=== PATIENT | female | born 1960 | race Caucasian/White ===

== ENCOUNTER 2025-07-03 07:30 | Day surgery (SDC) | payer MEDICARE, MEDICAID, SELFPAY ==
[2025-07-02 11:17] VITALS: BMI 29.0
[2025-07-03] VITALS (10 sets, daily range): BP systolic 97–135; BP diastolic 67–76; PULSE 68–83; RESP 14–20; TEMP 36.8; O2SAT 93–99; BMI 29.0
[2025-07-03] MEDS: SODIUM CHLORIDE 0.9% 500 ML 500 ML 20 ML IV (09:04)
[2025-07-03] MEDS: fentaNYL CIT INJ 50 mCg/ML AMP 2ML IVP (09:09)
[2025-07-03] MEDS: MIDAZOLAM INJ 1 MG/ML VIAL 2 ML 2 MG IVP (09:09)
--- NOTE | 2025-07-03 10:06 | SUR.PHASEII ---
0955 Pt more awake and alert. Does c/o being tired. Reassurance offered. Abd soft. Lori Po fluids. 1006 Pt assessment unchanged. No complaints. Amb with steady gait. Able to dress self. Pt and friend given dc instructions. Both state understanding. Pt meets dc instructions. To home.
== END 2025-07-03 10:06 | disposition home or self-care (01) ==
PROVIDERS: PCP Family Medicine; Referring Provider Specialist; Visit Provider Specialist
PROC: 0DBE8ZX Excision of Large Intestine, Via Natural or Artificial Opening Endoscopic, Diagnostic (ICD-10-PCS; CPT 45380; principal; 2025-07-03 08:30)
DX: Z12.11 Encounter for screening for malignant neoplasm of colon (principal); K64.1 Second degree hemorrhoids; K57.30 Diverticulosis of large intestine without perforation or abscess without bleeding
CPT/HCPCS: G0121; A4649; J1200; J2250; J3010; J7999